=== PATIENT | male | born 1945 | race Caucasian/White ===

== ENCOUNTER 2016-11-19 06:47 | Inpatient (IN) | payer MEDICARE, OTHER ==
--- NOTE | 2016-11-13 11:09 | PCM.ANEPRE ---
Anesthesia Pre-Op Review Reason for Review: SOB hx Additional Comments 70 y/o male scheduled for lap left nephrectomy. Pt with h/o SOB. Evaluated by PCP with PFTs. Determined to be COPD and placed on Pulmicort. Anesthesiologist DOS will need to eval SOB to determine if it is cardiac or pulmonary in origin and if problem has been sufficiently addressed. Last myocardial perfusion scan was in 2012 and was normal. Chart Reviewed by: Jose Maria Stinson MD Nov 13, 2016 11:09
[~2016-11-19] VITALS: Ht 175.3 cm; Wt 105.0 kg
[2016-11-19] VITALS (17 sets, daily range): BP systolic 118–176; BP diastolic 53–88; PULSE 39–64; RESP 9–20; O2SAT 93–99
[~2016-11-19 06:47] MED LIST: ASPI-973 PO; BDS.4IN INH; BIOT5000 PO; BREWERS YEAST PO; CeFAZolin Inj 2 GM in IV Premix 1 EACH IV ONE; HYDR-4003 PO; LOSA50TA37 PO; Lactated Ringer's 1,000 ML IV ONE; TAMS0.4C98 PO
[2016-11-19] MEDS ORDERED: Dexamethasone 4 mg/mL Inj IVPUSH PRN (07:25)
[2016-11-19] MEDS ORDERED: Lactated Ringer's 500 ML IV PRN (07:25)
[2016-11-19] MEDS ORDERED: Lactated Ringer's 1,000 ML IV SCH (07:25)
[2016-11-19] MEDS ORDERED: MetoCLOpramide 5 mg/mL 2 mL Inj IVPUSH PRN (07:25)
[2016-11-19] MEDS ORDERED: Phenylephrine 10,000 mCg/mL Inj IVPUSH PRN (07:25)
[2016-11-19] MEDS ORDERED: EPHEDrine Sulfate 50 mg/mL Inj IVPUSH PRN (07:25)
[2016-11-19] MEDS ORDERED: Ondansetron 2 mg/mL 2 mL Inj IVPUSH PRN ×2 (07:25→12:55)
--- NOTE | 2016-11-19 07:25 | PCM.HPANE ---
Patient Data Surgeon Admitting Provider: Attending Provider:Tatianna Vidaels MD Primary Care Physician:Guille Shoemaker MD Other Provider:Sissy Davis Anesthesia Reason for Visit Left Renal Mass LEFT RENAL MASS Ht/WT & BMI Height (Feet): 5 Height (Inches): 9 Body Mass Index 0.00 Allergies Coded Allergies: No Known Allergies (Unverified Allergy, Unknown, 11/12/16) Past Anesthesia History Anesthesia History: Denies:: Abnormal Airway, Anesthesia Reactions, Difficult Intubation, Fam Anesthesia Reaction, Fam Malignant Hypertherm, Malignant Hyperthermia Diabetes History Hx Diabetes?: No MRSA MRSA: No Medications Blood Thinner: Aspirin Hypertension Medication: Yes Home Meds Incl Beta Chuck: No Reported Medications Budesonide (Pulmicort Flexhaler)60 Puff/Inh Inhaler2 Puff INH BID #1 INHALER Ref 0 11/12/16 Losartan Potassium 50 Mg [id number] Mg PO DAILY 11/12/16 Hydrocodone-Acetaminophen 5-325 mg 1 Each Tablet1 Tablet PO Q6H PRN For Pain Ref 0 11/12/16 Tamsulosin (Flomax)0.4 Mg Capsule0.4 Mg PO DAILY Ref 0 11/12/16 Biotin 5,000 Mcg Tab.rapdis5,000 Mcg PO PRN vertigo 11/12/16 Aspirin 81 Mg Okyjjr93 Mg PO DAILY Ref 0 11/12/16 Discontinued Reported Medications [Brewers yeast ] No Conflict Check2 Tab PO DAILY 12/28/10 Ascorbic Acid-Expunged Drug, Do Not Renew! (Vitamin C-Expunged Drug, Do Not Renew!)500 Mg [id number] Mg PO DAILY 12/28/10 Vitamin B Complex/Folic Acid (Vitamin B-50 Complex Tablet)0.4 Mg Tablet1 Tab PO DAILY 12/28/10 Glucosamine Sulfate/Msm (Glucosamine-Msm Caplet)1 Each Tablet2 Each PO DAILY 12/28/10 Aspirin-Expunged Drug, Do Not Renew! 81 Mg Tab.chew81 Mg PO DAILY 12/28/10 Biotin 2,500 Mcg Capsule5,000 Mcg PO DAILY 12/28/10 Naproxen-Expunged Drug, Do Not Renew! (Naprosyn-Expunged Drug, Do Not Renew!) 500 Mg Nyhzol616 Mg PO BID 12/23/10 Budesonide-Expunged Drug, Do Not Renew! (Rhinocort Aqua-Expunged Drug, Do Not Renew!)8.6 Gm Spray8.6 Gm NS PRN 12/23/10 Beclomethasone-Expunged Drug, Do Not Renew! (Acrw-38-Bykilznd Drug, Do Not Renew !)80 Mcg Puff7.3 Inh Prn 12/23/10 History History of ENT Problems?: No HEENT History: Denies:: Abnormal Airway Cataracts Difficult Intubation Dysphagia Glaucoma Hearing Problem Sinus Problem TMJ Denture Type: None Teeth Condition: Within Normal Limits Hx of Heart Problems?: Yes Cardiovascular History: Positive for:: Hypertension Denies:: AICD Abdominal Aortic Aneurism Cardiac Surgery Chest Pain Congestive Heart Failure Coronary Artery Disease Edema Heart Murmur Irregular Heartbeat Pacemaker Peripheral Vascular Rheumatic Fever Hx of Respiratory Problem?: Yes Respiratory History: Positive for:: Dyspnea Use of Inhalers / NEBS Denies:: Asthma Oxygen Administration Pneumonia Tuberculosis Use of C-PAP Machine (borderline- didnt feel he needed it) Hx Neurologic Problems?: No Neurological History: Denies:: CVA Headaches Multiple Sclerosis Parkinson's Disease Seizures TIA Hx of GI Problems?: No Hx of Problems?: Yes (renal mass) Genitourinary History: Denies:: Kidney Stones Other Pertinent History: left renal mass current admission problem Male Hx: Positive for:: Prostate Problems (BPH) Denies:: Scrotal Mass Testicular Surgery Skin History: Denies:: History Skin Disorders? Pressure Ulcers Hx Musculoskeletal Problems?: Yes Musculoskeletal History: Positive for:: Back Injury (lami fusion 2016) Degenerative Joint Joint Replacement (greer knees ) Osteoarthritis Denies:: Fibromyalgia Myasthenia Gravis Systemic Lupus Hx of Psycho/Social Problems?: No Psycho Social History: Denies:: Anxiety Hx Depression Hx Surgeries?: Yes (hernia repair, lami, greer knee replacements ) Hx Any Other Health Problems?: Yes Other History: Denies:: Cancer Thyroid Disease History Blood Transfusions: Positive for:: Accept Blood Products? Denies:: Blood Transfusions Hx Diabetes: No Hx Alcohol Use: YesAlcoholic Drinks Per Day: once monthlyHx Substance Use: No Have You Smoked inLast 12 mo: No (never) Stop/Bang Treated for Sleep Apnea?: No Do You Have a CPAP Machine?: No S-Snoring: Do You Snore Loudly: No T-Tired: feel tired, fatigued: No O-Obsered: Observed not breath: No P-Blood Pressure: treated: Yes B- Body Mass Index > 35 kg/m2: No A- Age over 50: Yes N- Neck Large Circumference: No G- Gender Male: Yes YOANA Total Score: 3 YOANA Risk Assessment: High Risk, =/>3 Yes YOANA Category 2: Yes Risk Assessment Category Category 1A: Patient has history of documented sleep apnea, and HAS NOT received any narcotic, sedative or anesthesia administration during this stay. Category 1B: Patient has history of documented sleep apnea, and HAS received any narcotic , sedative or anesthesia administration during this stay Category 2: Patient has SUSPECTED Obstructive Sleep Apnea, and HAS received any narcotic , sedative or anesthesia administration during this stay. Category 3: Patient has SUSPECTED Obstructive Sleep Apnea and HAS NOT received narcotic, sedative or anesthesia administration during this stay. Category 4: Outpatient in Procedural Areas with known sleep apnea or who screen positive for High Risk via the STOP/BANG questionnaire. Exam Exam General Appearance: Alert, Oriented X3, Cooperative, No Acute Distress HEENT/AIRWAY: MP 2 Lungs: Clear to Auscultation, Normal Air Movement Heart: Exam Unremarkable, Regular Rate/Rhythm, No Murmurs/Rubs/Gallops Meds/Labs/Diagnostics Admission Meds Current Medications Lactated Ringer's (Lr) 1,000 ml @ 120 mls/hr Q8H20M ONCE IV Last administered on 11/19/16t 06:53; Start 11/19/16 at 05:00; Stop 11/19/16 at 13:19 Plan Impression Patient chart reviewed, patient interviewed and anesthestic plan with risks, benefits, and alternatives discussed, and informed consent obtained. ASA Physical Status: ASA3 Severe Disease (renal cell carcinoma) Anesthetic Plan: GA Bene/Risks/Altern/Consents: Yes HP Complete Prior to Induction: Yes Syed Wilson MD Nov 19, 2016 07:25
[2016-11-19] MEDS ORDERED: Lactated Ringer's 1,000 ML IV ONE ×2 (10:03→14:04)
--- NOTE | 2016-11-19 12:02 | CONS ---
[address] [address] CONSULTATION REPORT PATIENT: VALORIE MCGHEE V : 1945 MR#: [id number] ADMIT: 11/19/2016 JOB ID: [id number] DATE OF SERVICE: 11/19/2016 REQUESTED BY: Tatianna Vidales MD HISTORY OF PRESENT ILLNESS: The patient is 70 years old. I was asked by Dr. Vidales to do an intraoperative consult. She is performing a left radical nephrectomy laparoscopically for a left superior pole mass. The specific question to me was blood supply to the splenic flexure, the colon, and if she could mobilize the splenic flexure anymore. As I entered the room, Dr. Vidales was in the midst of exposing and then ligating the renal artery. During that time, I reviewed the CT scan that was available. By the CT scan there does not appear to be any evidence of portal hypertension or evidence of mesenteric insufficiency that would perhaps cause abnormal vasculature around the splenic flexure of the colon. She then showed me the vessels in question which in fact are splenic hilar vessels. Also, the inferior pole of the spleen appears infarcted. The superior pole was clearly well vascularized. The vessels in question do not involve the colon. 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 In an immunological sense and also in terms of dealing with red blood cells and platelets I do not think there will be any issue. He may have increased left upper quadrant pain postoperatively. I do not see any additional vessels that can be divided or should be divided to provide additional exposure and mobilization of the colon.
[2016-11-19] MEDS ORDERED: diphenhydrAMINE 25 mg Capsule PO PRN (12:55)
[2016-11-19] MEDS: fentaNYL-PF 50 mCg/mL 2 mL Inj IVPUSH PRN ×2 (12:55→13:08)
[2016-11-19 13:00] LABS: APPEARANCE,URINE HAZY (CLEAR,HAZY); COLOR,URINE STRAW (YELLOW); OCCULT BLOOD,URINE MODERATE (NEGATIVE); UROBILINOGEN,URINE NORMAL (NORMAL)
[2016-11-19] MEDS: HYDROmorphone 1 mg/mL Inj IVPUSH PRN ×4 (13:20→13:53)
--- NOTE | 2016-11-19 13:41 | PCM.ANEP1 ---
Post Anesthesia PACU Phase 1 Assessment Vital Signs Vital Signs Date Time Temp Pulse Resp B/P Pulse Ox O2 Delivery O2 Flow Rate FiO2 11/19/16 13:35 36.1 48 16 132/71 94 Room Air 11/19/16 13:25 39 14 121/65 95 Room Air 11/19/16 13:15 40 12 120/53 96 Room Air 11/19/16 13:05 36.3 41 16 118/67 94 Room Air 11/19/16 12:55 49 15 142/68 97 Simple Mask 10 11/19/16 12:51 53 15 141/74 98 Simple Mask 10 11/19/16 12:45 35.7 59 14 138/88 Simple Mask 10 11/19/16 07:24 36.4 63 18 147/74 97 Room Air Anesthetic Administered: GA Level of Alertness: Sleepy, easy to arouse DUMONT's with Equal Strength: Yes Pain: No Nausea or Vomiting: No CV Function & Hydration Stable: Yes Airway Device: Oralpharangeal Airway Oxygen Delivery: Simple Mask Lungs: Clear to Auscultation, Normal Air Movement Dermatome Level: Full Sensation PACU Phase 2 Assessment Complications: No Follow up Care: No Patient Instructions Provided: N/A Syed Wilson MD Nov 19, 2016 13:41
[2016-11-19] MEDS ORDERED: Rocuronium 10 mg/mL 5 mL Inj ONE (14:34)
[2016-11-19] MEDS ORDERED: Propofol 10,000 mCg/mL 20 mL Inj ONE (14:34)
[2016-11-19] MEDS ORDERED: Dexamethasone 4 mg/mL Inj ONE (14:34)
[2016-11-19] MEDS ORDERED: fentaNYL-PF 50 mCg/mL 2 mL Inj ONE (14:34)
[2016-11-19] MEDS ORDERED: Ketamine 10 mg/mL 20 mL Inj ONE (14:34)
[2016-11-19] MEDS ORDERED: Ondansetron 2 mg/mL 2 mL Inj ONE (14:34)
[2016-11-19] MEDS ORDERED: Glycopyrrolate 0.2 MG/ML 1mL Inj ONE (14:34)
[2016-11-19] MEDS ORDERED: Neostigmine 1 mg/mL 10 mL Inj ONE (14:34)
[2016-11-19] MEDS: D5 0.45% NaCl + KCl 20 mEq/L 1,000 ML IV SCH ×2 (15:54→22:25)
[2016-11-19] MEDS: oxyCODONE-Acetamin 5-325 mg Tablet PO PRN ×2 (18:18→22:28)
[2016-11-19] MEDS: BUDESONIDE 90 MCG INHALATION SCH (18:21)
--- NOTE | 2016-11-19 21:04 | OP ---
[address] [address] OPERATIVE REPORT PATIENT: VALORIE MCGHEE V : 1945 MR#: [id number] ADMIT: 11/19/2016 JOB ID: [id number] DATE OF SURGERY: 11/19/2016 PREOPERATIVE DIAGNOSIS(ES): Left renal mass. POSTOPERATIVE DIAGNOSIS(ES): Left renal mass. PROCEDURE PERFORMED: Left laparoscopic radical nephrectomy. (Modifier 22 is being requested for patient's obesity with overall procedure time 50% longer than the average nephrectomy.) SURGEON: Tatianna Vidales MD. TRUCK REPAIR SERVICE ESTIMATOR: Rosamaria Santana PA-C (Her assistance was required for navigating the laparoscopic camera and retracting tissue to facilitate the nephrectomy.) FISH TECHNOLOGIST: Huber Pozo MD. FINDINGS: Left upper pole renal mass. ANESTHESIA: General. ESTIMATED BLOOD LOSS: 25 mL. DRAINS: Hansen catheter to the bladder. SPECIMENS: Left kidney and mass. COMPLICATIONS: None. CONDITION: Stable. INDICATIONS FOR PROCEDURE: The patient is a 70-year-old gentleman with a 6.5 cm left upper pole renal mass. He now presents for laparoscopic radical nephrectomy. DESCRIPTION OF PROCEDURE: After informed consent was obtained, the patient was taken to the operating room. A time-out was performed identifying correct patient, surgical site, and procedure. General anesthesia was smoothly induced. A Hansen catheter was placed in the patient's bladder under sterile technique and set to dependent drainage. He was placed over a gel pad and beanbag in the right lateral decubitus position. All pressure points were identified and appropriately padded. His abdomen and flank were then prepped and draped in the usual sterile fashion. In the mid clavicular line, two fingerbreadths inferior to the subcostal margin. An 11 blade was used to incise the skin. Veress needle was inserted through it. A saline drop test was performed to ensure intraperitoneal location of the needle. The abdomen was insufflated. Three trocars were placed, one in the left lower quadrant, approximately 2 inches inferior to the level of the umbilicus. A second 10/12 trocar was then placed about an inch superior to the umbilicus and lateral given the patient's body habitus, and a 5 mm trocar was placed just superior the Veress needle site. The laparoscopic camera was used to survey the intraperitoneal contents. There was no inadvertent injury with trocar placement. Dissection then proceeded along the white line of Toldt. This released the colon somewhat medially. Upon coming up to the lienocolic ligaments there was seen quite a bit of adhesion from the tip of the spleen and more superiorly. Given the patient's body habitus and copious intraperitoneal fat, it was somewhat difficult to manipulate the bowels more medially just given the volume of fat. It was attempted to take down the lienocolic ligament further, though some vessels were seen there consistent with a splenic vein and artery. Dr. Huber Pozo did enter the room at my request to advise about potentially taking down these lienocolic ligaments as well as these vessels. Some of the lienocolic ligaments were taken down. Some of the vessels did have to be sacrificed and at the lower pole of the spleen, there appeared to be some duskiness of the spleen. He had advised against taking down these vessels any further as these were the main vessels of the splenic hilum. Next, another 5 mm trocar was placed in isael configuration somewhat anterior to the mid axillary line. This was placed under direct vision. Another 5 mm trocar was placed somewhat medial to the existing subcostal 5 mm trocar and this helped aid in retraction of the fat medially. The gonadal vessels were seen and the ureter coursing with it more cephalad. This was used to retract the lower pole of the kidney. A lower pole artery was seen consistent with the CT scan and three Hem-o-loks were used to treat the stay side and two on the go side and it was sharply incised. Then coming up to the renal hilum, there was a very large renal vein. There was also seen the adrenal vein coursing superior to it. The renal artery was then dissected posterior and inferior to the renal vein. The renal artery was treated with a three Hem-o-loks on the stay side and two on the go side, and it was also sharply incised. The adrenal vein was also treated with Hem-o-loks and incised. The renal vein was dissected out further with a right angle dissector and an Endo-MARIBELL vascular load was used to staple across it. Next, attention was turned to the lateral attachments of the kidney and these were taken down with Thunderbeat. The gonadal vessels were treated with Hem-o-loks as well as the ureter. Those were both sharply incised. Dissection commenced posteriorly as well as superomedially. The adrenal vein was seen and taken with the specimen given the upper pole location of the mass. The specimen was then freed down into the pelvis. The renal fossa was inspected. It was irrigated copiously. There was excellent hemostasis. FloSeal was applied over the area of the lienocolic ligaments on the spleen as well as the renal hilum. Surgicel was placed over those locations as well. A 15 mm EndoCatch bag was then applied to the left lower quadrant 10/12 trocar site after the trocar was removed. The specimen was placed within the bag and then tagged. The 10/12 trocar site near the umbilicus was closed with 0-Vicryl. The left lower quadrant incision was then elongated to approximately 3-4 inches. The specimen was taken out through it and passed off to Pathology as left kidney and mass. The two layers of fascia were then closed separately with running looped 0 PDS. The wounds were all irrigated copiously with water. The Son's layer of the extraction site was then closed with 3-0 Vicryl in interrupted fashion. All the skin incisions were then closed with running 4-0 Monocryl. The skin wounds were then dressed with Dermabond. The patient was then reversed from general anesthesia and taken to the PACU in good and stable condition. Again a modifier 22 is being requested given the patient's essential morbid obesity given his BMI of 34.3 as well as hypertension. DIPESH
--- NOTE | 2016-11-20 03:27 | NUR ---
Pain Patient arrived to room 1002 on day shift. No c/o pain or discomfort throughout night. Only when asked about pain does patient admit to some, stating, "I guess it's there." When asked if patient would like a pain pill, patient replies, "I suppose." Noted to be resting with eyes closed upon reassessment and during hourly rounding.
[2016-11-20 04:35] VITALS: BP 152/85; PULSE 50; RESP 17; O2SAT 95
[2016-11-20] MEDS: D5 0.45% NaCl + KCl 20 mEq/L 1,000 ML IV SCH ×3 (05:03→21:20)
[2016-11-20] MEDS: BUDESONIDE 90 MCG INHALATION SCH ×2 (07:55→21:21)
[2016-11-20 08:19] VITALS: BP 164/72; PULSE 56; RESP 18; O2SAT 96
--- NOTE | 2016-11-20 09:13 | NUR ---
Social Work- Initial Assessment Data: Please see Initial Assessment Intervention for additional information related to d/c planning. Pt is a 70 year old male admitted 11/19/16 for left renal mass per H&P. Pt's insurance is [employer]. Pt's PCP is Guille Shoemaker MD. Pt's readmit risk score is 2, low risk. SW met with pt at bedside to complete assessment, SW role explained. Pt resides in [place] with his where he is independent at baseline with ADLs and self-care. Pt uses no DME at baseline and drives. Pt has no HH or SNF history. Pt has no LTC or VA benefits. Pt has no DPOA on file, no information provided. Pt provided with discharge planning checklist, plan and phone number provided on whiteboard. Pt to d/c home with his to transport via POV. No d/c planning needs identified. SW will continue to follow. Assessment: Pt who is independent at baseline. Plan: Pt to d/c home with his to transport via POV. No d/c planning needs identified. SW will continue to follow. VERN [place] Addendum: 11/20/16 at 0930 by SILVESTRE GONZALEZ Amended: Links added.
[2016-11-20 12:29] VITALS: BP 171/80; PULSE 78; RESP 18; O2SAT 94
--- NOTE | 2016-11-20 12:55 | NUR ---
GI Pt. passed gas, bowel tones active. He reported min. discomfort and pain. He was ambulatory to bathroom with SBA. Advanced diet to full/general as tolerated by pt. Addendum: 11/20/16 at 1838 by DEDE GALDAMEZ RN Pt. stated he ate 50% of his soft diet dinner. He denied GI upset, but reported, "Just not very hungry." He said he ordered scrambling eggs for breakfast tomorrow. Continue to monitor GI.
--- NOTE | 2016-11-20 13:42 | PCM.PNSURG ---
Subjective Date of Service: Nov 20, 2016 Date of Service: Nov 20, 2016 Visit Information: Reason for Visit Left Renal Mass Surgery/Surgery Date L LAP NEPHRECTOMY 11/19/16 Post-Op Day #1 Date of Admission: Nov 19, 2016 at 14:33 Hospital Day #2 Subjective: Pt reports 2/10 pain. He denies any n/v with liquids this am. He has not ambulated. He has been passing flatus.He does report shortness of breath but states this has been ongoing for several years and is not new. Postop General: No Shortness of Breath, No Chest Pain Gastrointestinal: No N/V Objective Vital Sign- Last 8 Hours Date Time Temp Pulse Resp B/P Pulse Ox O2 Delivery O2 Flow Rate FiO2 11/20/16 12:29 36.8 78 18 171/80 94 Room Air 11/20/16 08:19 36.7 56 18 164/72 96 Room Air Intake and Output- Last 8 Hour 11/20/16 Cumulative From/Thru 07:00 11/12/16 16:18 - 11/20/16 06:26 Intake Total 2279 ml 4974 ml Output Total 2500 ml 3025 ml Balance -221 ml 1949 ml Intake Oral 800 ml 1040 ml IV Total 1479 ml 3934 ml Output Urine Total 2500 ml 3000 ml Estimated Blood Loss 25 ml # Bowel Movements 0 0 General: Alert Lungs: Normal Air Movement Abdomen: Soft, Appropriately tender, Normoactive bowel tones Extremities: Warm Neuro: Cranial Nerves 2-12 nl Catheters: Urethral 2 Way [place] Result Diagram: 11/20/16 0440 11/20/16 0440 Assessment & Plan Impression POD #1 LEFT lap radical nephrectomy Problems: Plan Continue to Advance diet as tolerated. Will remove de la rosa in AM Continue to monitor labs Encouraged IS and ambulation Rosamaria Santana PA-C Nov 20, 2016 13:41
[2016-11-20] MEDS: oxyCODONE-Acetamin 5-325 mg Tablet PO PRN ×2 (13:45→21:48)
--- NOTE | 2016-11-20 13:46 | NUR ---
Activity Pt. walked 150'+ in the hallway. FWW and SBA were needed for safety. Activity increased L. lower abdominal pain. PRN Percocet 1 tablet given once pt. returned to his room.
[2016-11-20 19:55] VITALS: BP 156/86; PULSE 84; RESP 22; O2SAT 94
[2016-11-21 00:05] VITALS: BP 148/82; PULSE 83; RESP 20; O2SAT 96
[2016-11-21] MEDS: D5 0.45% NaCl + KCl 20 mEq/L 1,000 ML IV SCH ×2 (00:30→07:48)
[2016-11-21] MEDS: oxyCODONE-Acetamin 5-325 mg Tablet PO PRN ×2 (01:47→09:54)
[2016-11-21 04:40] VITALS: BP 153/87; PULSE 85; RESP 18; O2SAT 96
--- NOTE | 2016-11-21 04:55 | NUR ---
Pain Patient educated in Pain management. Heart rate and respirations were increased yet denying intolerable pain. patient feeling most comfortable in sitting position, this allotted him optimal sleep. c/o lower back pain that is greater than surgery site. Post intervention heart rate and respiration lowered. Patient agrees to being more comfortable. Will continue to monitor.
--- NOTE | 2016-11-21 07:39 | PCM.DISURG ---
Surgical Discharge Instruction Date of Service Nov 21, 2016 Dates of Hospitalization Date of Hospital Admission Nov 19, 2016 at 14:33 Providers Admitting Physician: Tatianna Vidales MD Primary Care Physician: Guille Shoemaker MD Attending Physician: Tatianna Vidales MD Discharge Diagnosis Discharge Diagnosis LEFT renal mass Post Operative diagnosis Same Diet Discharge Diet: Renal Diet Activity Discharge Activity-General: Balance rest and activity, No lifting >10 pounds for 4-6 weeks, No driving while taking narcotic Dressing and Incisional Care Hygiene: May shower, DO NOT soak incision under water, NO bathtub, hot tub or whirlpool Follow Up Plan Follow Up Plan 2 wks wound check Call your provider for: Fever, Increasing abdominal pain, Vomiting, Increasing wound pain, Discharge @ incision, pus discharge Tatianna Vidales MD Nov 21, 2016 07:39
--- NOTE | 2016-11-21 07:41 | PCM.DC.SUR ---
Discharge Summary Date of Service: Nov 21, 2016 Date of Hospital Admission: Nov 19, 2016 at 14:33 Date of Operation(s): 11/19/16 Date of Discharge: 11/21/16 Diagnosis at Time of Discharge LEFT renal mass Problems: Operation LEFT lap radical nephrectomy Brief History and Physical: Mr Loera is a 70 M with 6.5 LEFT renal mass Hospital Course: He underwent the procedure and appeared to tolerate it well. By the time of discharge, he was ambulating, had tolerable pain, and was tolerating nutrition by mouth. Pathology: Pending Disposition: Home Follow-up Plan: 2 wks Aspirin (Aspirin) 81 Mg Tablet 81 MG PO DAILY (Reported) Biotin (Biotin) 5,000 Mcg Tab.rapdis 5,000 MCG PO PRN vertigo (Reported) Budesonide (Pulmicort Flexhaler) 60 Puff/Inh Inhaler 2 PUFF INH BID (Reported) Hydrocodone-Acetaminophen 5-325 mg (Hydrocodone-Acetaminophen 5-325 mg) 1 Each Tablet 1 TABLET PO Q6H PRN PRN For Pain (Reported) Losartan Potassium (Losartan Potassium) 50 Mg Tablet 50 MG PO DAILY (Reported) Tamsulosin (Flomax) 0.4 Mg Capsule 0.4 MG PO DAILY (Reported) Tatianna Vidales MD Nov 21, 2016 07:41
--- NOTE | 2016-11-21 08:42 | NUR ---
MARY ANN signed.
[2016-11-21] MEDS: BUDESONIDE 90 MCG INHALATION SCH (08:43)
[2016-11-21 08:47] VITALS: BP 154/96; PULSE 96; RESP 20; O2SAT 97
--- NOTE | 2016-11-21 10:51 | PCM.PNSURG ---
Subjective Date of Service: Nov 21, 2016 Date of Service: Nov 21, 2016 Visit Information: Reason for Visit Left Renal Mass Surgery/Surgery Date L LAP NEPHRECTOMY 11/19/16 Post-Op Day # 2 Date of Admission: Nov 19, 2016 at 14:33 Hospital Day # Subjective: Mr Loera reports doing well overall. His pain is 3/10. He ambulates. He has urinated. He tolerates diet w/o n/v. He feels ready for home today. Postop General: No Complaints Gastrointestinal: Good Appetite Pain Management: PO Postop Activity: Ambulating Independently Objective Vital Sign- Last 8 Hours Date Time Temp Pulse Resp B/P Pulse Ox O2 Delivery O2 Flow Rate FiO2 11/21/16 08:47 36.8 96 20 154/96 97 Room Air 11/21/16 04:40 36.8 85 18 153/87 96 Room Air Intake and Output- Last 8 Hour 11/21/16 Cumulative From/Thru 07:00 11/12/16 16:18 - 11/21/16 06:19 Intake Total 1010 ml 8329 ml Output Total 1450 ml 7425 ml Balance -440 ml 904 ml Intake Oral 640 ml 2160 ml IV Total 370 ml 6169 ml Output Urine Total 1450 ml 7400 ml Estimated Blood Loss 25 ml # Bowel Movements 0 0 General: Alert Abdomen: Soft, Appropriately tender, Other (wound with mild ecchymosis lexy the larger LLQ extraction site, otherwise c/d/i) Extremities: Warm Neuro: Cranial Nerves 2-12 nl Catheters: None Result Diagram: 11/20/16 0440 11/21/16 0510 Assessment & Plan Impression POD#2 LEFT lap radical Nx Problems: Plan DC planning We reviewed activity instructions and wound care Tatianna Vidales MD Nov 21, 2016 10:51
--- NOTE | 2016-11-21 13:08 | NUR ---
Discharge Amos discharged home via private vehicle with and family. All belongings sent with them. Wound care instructions and activity restrictions were covered in detail by both Dr. Vidales and RN with teach back observed. Confirmed with Dr. Vidales to resume his home medications and med rec covered in detail. Catheter removed this morning and pt voiding spontaneously.
--- NOTE | 2016-11-22 09:11 | PATH ---
SURGICAL PATHOLOGY Attending Physician:Tatianna Vidales, CASE STATUS: Signed Out PATIENT NAME: VALORIE MCGHEE V. PID: [id number] : 1945 DATE COLLECTED:11/19/2016 22:06 SPECIMEN: Kidney, Radical Nephrectomy for Tumor CLINICAL HISTORY: LEFT RENAL MASS 1). LEFT KIDNEY AND MASS FINAL DIAGNOSIS: LEFT KIDNEY, RADICAL NEPHRECTOMY: 1. 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 -NEGATIVE FOR RENAL CAPSULE OR RENAL VEIN INVASION. 2.ADRENAL GLAND WITH NO EVIDENCE OF NEOPLASM. ICD10 D30.02 NOTE: This case will be sent to the [facility] for a second opinion and the results reported as an addendum. GROSS DESCRIPTION: The specimen consists of a left kidney (13.2 x 8.0 x 4.2 cm) with an attached ureter (length-7.5 cm, diameter-0.3 cm), renal artery (length-7.5 cm, diameter-0.3 cm), renal vein (length-2.1 cm, diameter-0.8 cm) and perirenal adipose tissue (up to 4.5 cm in depth). The adrenal gland (7.8 g, 6.2 x 1.7 x 0.5 cm) is present. The Gerota' s fascia has been identified. A yellow-orange solid firm well-circumscribed mass (6.3 x 5.3 x 4.5 cm) involving the superior pole is 14.8 cm from the ureteric,11.5 cm from the arterial, and 9.5 cm from the venous resection margins. The mass pushes outward on the renal capsule beyond the normal contour but does not grossly appear to extend through it. The mass is less than 0.1 cm from the Gerota' s fascia but does not grossly appear to extend through it. The mass abuts the renal sinus but does not extend into it. The mass does not involve the renal sinus fat, pelvis, vein or artery. The remaining renal parenchyma is powers with normal architecture. No other nodules, masses or lesions are identified. The adrenal gland is yellow-orange and unremarkable. Ink code: green-Gerota' s fascia. Section code: (A) ureteric, renal, venous resection margins; (B, C) mass and Gerota' s fascia, enrollment eligibility representative; (D, E, G-H) mass and renal sinus; (I, J) mass and perirenal adipose tissue; (K) mass, enrollment eligibility representative; (L) normal renal parenchyma, (M) adrenal gland, serially sectioned, enrollment eligibility representative. 11/20/16 JM MICRO DESCRIPTION: See diagnosis. ICD-9 CODES: CPT CODES: 1: 78786 Electronically Signed Out Marita Quiroz MD [facility] [address], [place] [address] Technical component performed at [facility], [facility] [address], [place], [address]
== END 2016-11-21 12:55 | disposition home or self-care (01) | DRG 661 ==
LOC: SAS 06:47 → OSC 14:33
PROVIDERS: ADMIT Urology; ATTEND Urology
PROC: 0TT14ZZ Resection of Left Kidney, Percutaneous Endoscopic Approach (ICD-10-PCS; principal; 2016-11-19 08:45)
DX: N28.89 Other specified disorders of kidney and ureter (principal); E66.9 Obesity, unspecified; Z68.33 Body mass index [BMI] 33.0-33.9, adult; I10 Essential (primary) hypertension